=== PATIENT | male | born 1990 | race Caucasian/White ===

== ENCOUNTER 2016-11-21 15:22 | Emergency (ER) | payer SELFPAY ==
[~2016-11-21] VITALS: Ht 182.9 cm; Wt 79.8 kg
--- NOTE | 2016-11-21 17:11 | PHYS DOC ---
General Chief Complaint: BACK PAIN OR INJURY Stated Complaint: BACK PAIN Time Seen by MD: 17:03 Source: patient Exam Limitations: no limitations Problems: History of Present Illness Initial Comments Patient is a 26-year-old male who comes to the ED complaining is back pain. Patient states that approximately 3 PM today he was finishing up the shower preparing to go to work. He states that as he was bending over he coughed and experienced an onset severe lumbar pain. He states that the pain was so severe it dropped into his knees. He says that he had to call out for his significant other to assist in getting out of the bath of has any movements caused excruciating pain in the low back. He denies any leg radiation or weakness, no bowel or bladder symptoms no saddle anesthesia. Pain is described as sharp and stabbing the 10 out of 10 worse with movement and relieved somewhat with supine position and rest. No prior back injuries no pre-arrival treatment patient is normally healthy denies any chronic conditions are daily medications. Timing/Duration: this afternoon Severity/Quality: severe, sharpness Location: lumbar spine, paraspinous muscles Method of Injury: other Modifying Factors: improves with immobilization, worse with jarring, worse with movement, improves with rest Associated Symptoms: muscle spasms, lower back pain Allergies: Coded Allergies: rojo (Verified Allergy, Unknown, 11/21/16) Past Medical History Medical History: no pertinent history Surgical History: noncontributory Social History Smoker: non-smoker Alcohol: none Drugs: none Review of Systems Constitutional: denies chills, denies fever, denies malaise Respiratory: denies cough, denies shortness of breath Cardiovascular: denies chest pain, denies palpitations Gastrointestinal: denies nausea, denies vomiting Genitourinary: denies dysuria, denies frequency, denies hematuria Musculoskeletal: see HPI, denies joint swelling, denies neck pain Psychiatric/Neurological: denies headache, denies numbness, denies paresthesia , denies seizure, denies tingling, denies weakness Physical Exam General Appearance: WD/WN, severe distress HEENT: PERRL/EOMI, normal ENT inspection Neck: non-tender, full range of motion Cardiovascular/Respiratory: normal peripheral pulses, no respiratory distress Gastrointestinal: non tender, soft Back: no vertebral tenderness, decreased range of motion, muscle spasm Extremities: no evidence of injury, non-tender, no pedal edema, pelvis stable Neurologic/Psychiatric: board setter II-XII nml as tested, no motor/sensory deficits, alert, oriented x 3, other (DTRs/strength/sensory equal and intact bilateral lower extremities, negative straight leg raise bilaterally) Skin: normal color, warm/dry Orders, Labs, Meds I discussed imaging, the patient has no trauma or injury with an excessive force vector. Patient is in agreement that plain films would be of little benefit. I discussed treatment options, the patient expressed agreement and understanding. The patient chooses to receive intramuscular analgesics and go home prior to their efficacy, he will return as needed. See departure Departure Time of Disposition: 17:05 Disposition: 01 HOME, SELF-CARE Diagnosis: low back strain Condition: GOOD Patient Instructions: Low Back Strain with [facility] Additional Instructions: Off work through November 24 note given. Rest, keep activity to "pain free." Prescription: Prednisone 20 mg, Neurontin 300 mg, [place] 7.5 mg quantity 15 Take medications with food. Take [id number] stool softeners and increase fluid intake to avoid opiate- induced constipation. You will need to follow-up with a primary care physician. As you do not have one ED staff will give you a list of local doctors who are accepting new patients. They will also highlight those who take same day walk-in appointments. Call tomorrow to schedule a follow-up appointment . You may require MRI evaluation or pain management referrals both of which must be done outpatient. Return to the ED with new or changing symptoms. GUERA HILARIO DO Nov 21, 2016 17:11
[2016-11-21 17:17] VITALS: BP 128/67
[2016-11-21] MEDS ORDERED: fentaNYL PF 100 MCG/2 ML VIAL IM ONE (17:30)
== END 2016-11-21 17:37 | disposition home or self-care (01) ==
LOC: ER 15:22
DX: S39.012A Strain of muscle, fascia and tendon of lower back, initial encounter (principal); Z91.018 Allergy to other foods; X58.XXXA Exposure to other specified factors, initial encounter; Y93.89 Activity, other specified; Y99.8 Other external cause status; Y92.89 Other specified places as the place of occurrence of the external cause
CPT/HCPCS: 96372; 99284; J3010